=== PATIENT | male | born 1940 | race Caucasian/White ===

== ENCOUNTER 2025-01-05 10:28 | Emergency (ER) | payer MEDICARE, SELFPAY ==
[2025-01-05 10:37] VITALS: BP 111/61; PULSE 64; RESP 20; TEMP 36.7; O2SAT 98
--- NOTE | 2025-01-05 10:49 | ED_ITS ---
HPI - Extremity Injury (Lower) General Chief Complaint: Extremity Injury, Lower Stated Complaint: Left Foot Injury Time Seen by Provider: 01/05/25 11:23 Source: patient and RN notes reviewed Mode of arrival: ambulatory Limitations: no limitations History of Present Illness HPI Narrative: 84-year-old male presents with concern for injury to the 1st digit of the left foot. Reports 5 days ago he hit the toe on a brick threshold and caused an abrasion. Reports he has been taking care of the wound and wanted to make sure it was not getting infected. He denies any warmth, drainage, decreased strength, sensation, range of motion. Denies any fever, aches, chills sweats MD complaint: foot injury Related Data Home Medications Medication Instructions Recorded Confirmed Last Taken Type alfuzosin 10 mg tablet,extended mg PO 01/05/25 Unknown History release 24 hr escitalopram oxalate 20 mg tablet mg 01/05/25 Unknown History gabapentin 300 mg capsule mg 01/05/25 Unknown History hydrochlorothiazide 25 mg tablet mg 01/05/25 Unknown History oxybutynin chloride 15 mg mg PO 01/05/25 Unknown History tablet,extended release 24 hr rosuvastatin 10 mg tablet mg 01/05/25 Unknown History verapamil 240 mg tablet,extended mg PO 01/05/25 Unknown History release zolpidem 10 mg tablet mg 01/05/25 Unknown History Allergies Allergy/AdvReac Type Severity Reaction Status Date / Time No Known Allergies Allergy Unverified 01/05/25 10:44 Review of Systems Review of Systems: CONSTITUTIONAL: Denies malaise, chills, sweats, or fever. SKIN: Denies rash or itching, open skin, laceration, redness, warmth, swelling. Reports scabbed abrasion to the distal 1st digit of left foot MUSCULOSKELETAL: Denies toe pain NEUROLOGIC: Denies numbness, weakness All systems reviewed & are unremarkable except as noted in HPI and below PMFSH Comments At time of signature, agree with nursing past medical, surgical, social and family history. There is no relevant family history pertinent to the presenting complaint Exam Narrative: GENERAL: Well-appearing, well-nourished, and in no acute distress. HEAD: Normocephalic, atraumatic. EYES: PERRLA, conjunctivae clear NECK: Supple. CHEST: Speaks in full sentences. No respiratory distress. HEART: Regular rate and rhythm. Normal and equal peripheral pulses. EXTREMITIES: 1st digit of the left foot has grossly normal strength and sensation, grossly normal range of motion. No edema or ecchymosis. Normal sensation with sensitivity to light touch and pain. No point tenderness. No skin tenting, no devitalized tissue or atrophy, no trophic changes, no obvious deformity, alignment normal, nearby joints and structures intact. Distal pulses palpable and equal bilaterally, skin warm, dry, pink. Capillary refill less than 3 seconds. SKIN: Warm, dry, no rash. Scabbed abrasion noted to the distal 1st digit of the left foot without surrounding erythema, edema, induration, drainage NEURO: Alert and oriented x3. PSYCH: Normal mood and affect Course Course Emergency Course: Patient is aware of diagnosis, understands and agrees to treatment plan. Antic ipatory guidance given. Patient agrees to follow-up as directed and is aware of reasons to seek care at the emergency department. Portions of this record may have been created with voice recognition software Level of Care: Express Care Visit Vital Signs Vital signs: Vital Signs Temperature 98.0 F 01/05/25 10:37 Pulse Rate 64 01/05/25 10:37 Respiratory Rate 20 01/05/25 10:37 Blood Pressure 111/61 01/05/25 10:37 Pulse Oximetry 98 01/05/25 10:37 Oxygen Delivery Room Air 01/05/25 10:37 Temperature 98.0 F 01/05/25 10:37 Pulse Rate 64 01/05/25 10:37 Respiratory Rate 20 01/05/25 10:37 Blood Pressure 111/61 01/05/25 10:37 Pulse Oximetry 98 01/05/25 10:37 Oxygen Delivery Room Air 01/05/25 10:37 Reviewed. MDM - Extremity Injury (Lower) MDM Narrative Medical decision making narrative: The patient was evaluated by myself in the express care. History is obtained from patient who is an independent historian and physical exam was performed. Available medical records were reviewed at this time. Exam findings show no acute concerns or changes; patient is non-toxic appearing and is in no distress. Patient is appropriate for outpatient treatment and follow-up. I have evaluated and discussed social determinants of health with the patient that could potentially impact subsequent diagnosis and treatment plans. Patients injury and pain is consistent with musculoskeletal etiology. No signs of neurological or vascular compromise on exam. Compartments and tissues are soft without signs of compartment syndrome. Pain is felt appropriate for further evaluation on an outpatient basis. Critical Care Time Critical Care Time Critical Care Time: No Discharge Plan Discharge Clinical Impression: Abrasion Patient Disposition: Home Condition: Stable Instructions: Warm Compress or Soak (ED) Additional Instructions: Please follow up with your Primary Care Doctor as needed. Rest and elevate affected area; soak in warm water with Epsom salts or apple cider vinegar 3-4 times daily for 10-15 minutes. Take Tylenol as needed for pain. If you experience any worsening redness, swelling, streaking (red lines), fever or chills please go to the ER Patient Language: Icelandic Prescriptions: No Action oxybutynin chloride 15 mg tablet extended release 24hr PO gabapentin 300 mg capsule verapamil 240 mg tablet extended release PO hydrochlorothiazide 25 mg tablet zolpidem 10 mg tablet escitalopram oxalate 20 mg tablet rosuvastatin 10 mg tablet alfuzosin 10 mg tablet extended release 24 hr PO Follow-up/Referrals: Minh,Fabienne Carter [Primary Care Provider] - Time of Disposition: 11:30
--- OUTSIDE RECORDS SUMMARY | 2025-01-05 11:02 | XMS_ITS | Clinical Summary ---
Author Organization [facility] Medical Office Building A Address [address] [place] [address] Care Team Providers Care Fitness Management Director Name Role Phone Fabienne Wilkinson NP Primary Care Provider [phone] Rupesh Lemus MD Unavailable [phone] Allergies No known active allergies Medications betamethasone dipropionate (DEL-BETA) 0.05 % creamIndications:P soriasis Apply topically 2 (two) times a day as needed for irritation or rash 135 g 1 10/19/19 24 Active betamethasone, augmented, (DIPROLENE AF) 0.05 % cream 10/01/19 24 Active aspirin (Ecotrin) 325 mg enteric coated tabletIndications: prevention of thrombosis Take 1 tablet (325 mg total) by mouth daily 42 tablet 03/19/20 24 Active Additional Information Patient not taking.Reported on 08/18/2024 ondansetron (ZOFRAN) 4 mg tablet Take 1 tablet (4 mg total) by mouth every 8 (eight) hours as needed for nausea or vomiting 20 tablet 2 03/19/20 24 Active Additional Information Patient not taking.Reported on 11/20/2024 clobetasoL (TEMOVATE) 0.05 % external solution 05/08/20 24 Active HYDROcodone-acetam inophen (NORCO) 5-325 mg per tablet 1 tablet(s), Oral, tid, PRN, 90 tablet(s), 0, 0, pain, Route to Pharmacy Electronically, [facility], [facility]-[id number], 95.5, kg, 05/25/23 11:24:00 CDT, Weight 06/05/20 24 Active rosuvastatin (CRESTOR) 10 mg tabletIndications: Mixed hyperlipidemia Take 1 tablet (10 mg total) by mouth nightly 90 tablet 1 08/14/20 24 025 Active gabapentin (NEURONTIN) 300 mg capsuleIndications :Idiopathic peripheral neuropathy Take 1 capsule (300 mg total) by mouth 3 (three) times a day 90 capsule 3 08/18/20 24 Active alfuzosin ER (UROXATRAL) 10 mg 24 hr tabletIndications: benign prostatic hyperplasia with lower urinary tract sx Take 1 tablet (10 mg total) by mouth every morning 90 tablet 1 10/14/19 25 026 Active escitalopram (LEXAPRO) 20 mg tabletIndications: Anxiety and depression TAKE 1 TABLET (20 MG TOTAL) BY MOUTH NIGHTLY 90 tablet 10/21/19 25 026 Active oxyBUTYnin XL (DITROPAN XL) 15 mg 24 hr tabletIndications: Malignant neoplasm of urinary bladder, unspecified site (HCC) Take 1 tablet (15 mg total) by mouth nightly 90 tablet 1 10/29/19 25 026 Active verapamil SR (CALAN SR) 240 mg CR tabletIndications: Essential hypertension Take 1 tablet (240 mg total) by mouth nightly 90 tablet 1 11/08/19 25 026 Active zolpidem (AMBIEN) 10 mg tabletIndications: Primary insomnia TAKE 1 TABLET (10 MG TOTAL) BY MOUTH NIGHTLY 1.22 90 tablet 11/14/19 25 Active hydroCHLOROthiazid e (HYDRODIURIL) 25 mg tabletIndications: Essential hypertension Take 1 tablet (25 mg total) by mouth daily 90 tablet 3 12/03/19 25 Active Active Problems Problem Noted Date Diagnosed Date 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 No red flags likely a bony abnormality that is not worrisome. Fili did just lose about 20 lbs so this may be something that has been there for a while. S/P TKR (total knee replacement), left Assessment & Plan (04/04/2024 3:52 PM CDT): Left TKR 03/18 Recovering well; engaging in PT Incision healing nicely Minimal pain Hypokalemia 03/25/2024 Entropion of right eyelid 08/30/2023 Sensorineural hearing loss ( SNHL) of left ear with restricted hearing of right ear 08/06/2023 Assessment & Plan (08/06/2023 3:13 PM LEAF TINNER): Avoid ear cleaning techniques Hearing test Balance disorder 04/10/2023 Primary osteoarthritis of left knee 04/29/2020 Assessment & Plan (07/01/2024 12:21 PM LEAF TINNER): Post surgical healing well with some pain still noted. Using PRN Hope. Continues to follow with ORTHO PRN Assessment & Plan (10/19/2023 3:20 PM LEAF TINNER): Follows with Dr. Lemus Has been receiving cortisone injections Hope 5-325 mg as needed for pain; takes infrequently BMI 29.0-29.9,adult 05/06/2019 Assessment & Plan (07/04/2024 3:18 PM LEAF TINNER): Weight appropriate for patient. Assessment & Plan (07/01/2024 12:23 PM LEAF TINNER): Weight appropriate for patient. Assessment & Plan (05/06/2019 1:49 PM CDT): Patient is encouraged to lose weight with a combination of caloric reduction and increased exercise. Medicare annual wellness visit, subsequent 10/31 Assessment & Plan (07/01/2024 12:23 PM LEAF TINNER): In regard to health maintenance, Influenza vaccine- UTD Pneumococcal vaccine- UTD Shingrix vaccine- declined Eat a healthy diet: focus on lean meats and proteins, more fruits, vegetables and whole grains and low in sugars and fats. Limit red meat and avoid processed meat. Maintain a healthy weight; avoid being overweight. Aim for a normal body mass index (BMI) of 18.5-24.9. Help learning to eat healthier, we can set up appointment with public relations supervisor/flight deck officer. Have an active lifestyle, strive for 30 minutes of moderate exercise 5 times a week and strength or resistance training at least twice a week. Use broad-spectrum (UVA+UVB) sunscreen with SPF 30 or greater, is water resistant, limit time spent in the sun (10 am-4pm), wear hat, wear UV protective clothing, wear sunglasses. Never use a tanning bed. Skin that was irradiated may be more sensitive over your lifetime. Limit alcohol intake, 1 drink per day for a woman and 2 drinks per day for a man. Assessment & Plan (06/04/2023 11:03 AM CDT): Flu shot and booster recently administered. Pneumovax /Prevnar 13 completed. Tetanus booster due February 2027. RSV recommended. Shingrix recommended. Deferring future PSAs and colonoscopy due to age. Will see him back in 5 months with lab sooner if needed Assessment & Plan (05/12/2022 2:01 PM CDT): Flu shot each May. COVID booster recommended. Pneumovax and Prevnar 13 completed. Tetanus booster due February 2027. Shingrix recommended. Deferring PSAs and colonoscopy due to age. Will see him back in 6 months with lab sooner if needed. Assessment & Plan (05/09/2021 11:38 AM CDT): We discussed a comprehensive list of medical conditions and proposed recommendations for each. We discussed the importance of increased exercise, fall prevention, proper nutrition, and suggested joining [employer] [facility] to accomplish most of these goals. Patient was given an age appropriate Medicare preventive services checklist. Please see the EMR regarding details of their health risk assessment and preventive services checklist. Will see him back in 6 months with lab sooner if needed. Assessment & Plan (04/01/2020 5:25 PM CDT): We discussed a comprehensive list of medical conditions and proposed recommendations for each. We discussed the importance of increased exercise, fall prevention, proper nutrition, and suggested joining [facility] to accomplish most of these goals. Patient was given an age appropriate Medicare preventive services checklist. Please see the EMR regarding details of their health risk assessment and preventive services checklist. Will see him back in 6 months with lab sooner if needed. Assessment & Plan (10/31/2018 2:26 PM CDT): We discussed a comprehensive list of medical conditions and proposed recommendations for each. We discussed the importance of increased exercise, fall prevention, proper nutrition, and suggested joining [facility] to accomplish most of these goals. Patient was given an age appropriate Medicare preventive services checklist. Please see the EMR regarding details of their health risk assessment and preventive services checklist. Will see him back in 6 months with metabolic panel and A1c sooner if needed. Essential hypertension 12/31/2017 Assessment & Plan (07/01/2024 12:18 PM LEAF TINNER): Blood pressure stable and well controlled. Will continue on Verapamil, HCTZ, and ASA. Assessment & Plan (10/19/2023 3:24 PM LEAF TINNER): Chronic, stable BP at goal at visit; 114/72 Continue Verapamil 240 mg nightly, HCTZ 25 mg nightly and ASA 81 mg weekly on Sunday Assessment & Plan (06/04/2023 11:02 AM CDT): Blood pressure well controlled on hydrochlorothiazide, verapamil Assessment & Plan (05/12/2022 1:59 PM CDT): Well controlled on the current regimen. Avoidance of salt, proper body weight, and routine exercise recommended. Assessment & Plan (11/07/2021 1:43 PM CDT): Well controlled on the current regimen. Avoidance of salt, proper body weight, and routine exercise recommended. Assessment & Plan (05/09/2021 11:36 AM CDT): Well controlled on the current regimen. Avoidance of salt, proper body weight, and routine exercise recommended. Assessment & Plan (01/10/2021 2:48 PM CDT): Well controlled on the current regimen. Avoidance of salt, proper body weight, and routine exercise recommended. Assessment & Plan (10/27/2020 11:50 AM LEAF TINNER): Well controlled on the current regimen. Avoidance of salt, proper body weight, and routine exercise recommended. Assessment & Plan (04/01/2020 5:25 PM CDT): Well controlled on the current regimen. Avoidance of salt, proper body weight, and routine exercise recommended. Assessment & Plan (05/06/2019 1:48 PM CDT): Well controlled on the current regimen. Avoidance of salt, proper body weight, and routine exercise recommended. Assessment & Plan (10/31/2018 2:24 PM CDT): Well controlled on the current regimen. Avoidance of salt, proper body weight, and routine exercise recommended. Assessment & Plan (04/30/2018 2:35 PM CDT): Well controlled on the current regimen. Avoidance of salt, proper body weight, and routine exercise recommended. Will see him back in 6 months for wellness visit fasting lab sooner if needed. Assessment & Plan (12/31/2017 12:05 PM CDT): Well controlled but if creatinine continues to rise consider changing hydrochlorothiazide to alternative agent. Bladder cancer 12/31/2017 Overview (05/09/2021): Dr Contreras removed tumors x 2. Followed by Dr Malik. Assessment & Plan (10/19/2023 3:25 PM LEAF TINNER): History of bladder cancer Follows with urology Continue Oxyburynin 15 mg nightly and Uroxatral 10 mg nighlty Assessment & Plan (06/04/2023 11:02 AM CDT): Follow-up with his urologist as they direct Assessment & Plan (05/12/2022 2:00 PM CDT): Follow-up with his urologist as they direct. Assessment & Plan (05/09/2021 11:37 AM CDT): Patient instructed to follow-up with his urologist for further evaluation with possible cystoscopy to evaluate his lower urinary tract symptoms. Assessment & Plan (04/01/2020 5:26 PM CDT): Follow-up with his urologist as they direct. Assessment & Plan (05/06/2019 1:48 PM CDT): Follow-up his urologist as they direct. Assessment & Plan (10/31/2018 2:24 PM CDT): Follow-up with Dr. Contreras as he directs. Assessment & Plan (04/30/2018 2:34 PM CDT): Follow-up with Dr. Contreras as he directs. Assessment & Plan (12/31/2017 12:06 PM CDT): Follow-up with Dr. Contreras as he directs. IFG (impaired fasting glucose) 12/31/2017 Assessment & Plan (07/01/2024 12:18 PM LEAF TINNER): A1C ordered. Stable and will continue to monitor. Assessment & Plan (05/12/2022 1:59 PM CDT): Patient should reduce sugar and carbs, increase exercise, maintain proper body weight, and will check an A1c once or twice yearly. Assessment & Plan (11/07/2021 1:43 PM CDT): Patient should reduce sugar and carbs, increase exercise, maintain proper body weight, and will check an A1c once or twice yearly. Assessment & Plan (05/09/2021 11:37 AM CDT): Patient should reduce sugar and carbs, increase exercise, maintain proper body weight, and will check an A1c once or twice yearly. Assessment & Plan (10/27/2020 11:50 AM LEAF TINNER): Patient should reduce sugar and carbs, increase exercise, maintain proper body weight, and will check an A1c once or twice yearly. Assessment & Plan (04/01/2020 5:25 PM CDT): Patient should reduce sugar and carbs, increase exercise, maintain proper body weight, and will check an A1c once or twice yearly. Assessment & Plan (05/06/2019 1:48 PM CDT): Patient should reduce sugar and carbs, increase exercise, maintain proper body weight, and will check an A1c once or twice yearly. Assessment & Plan (10/31/2018 2:24 PM CDT): Check fasting blood sugar and A1c before next visit. Reduce carbohydrates and sugars. Assessment & Plan (04/30/2018 2:34 PM CDT): Patient should reduce sugar and carbs, increase exercise, maintain proper body weight, and will check an A1c once or twice yearly. Assessment & Plan (12/31/2017 12:06 PM CDT): Patient should reduce sugar and carbs, increase exercise, maintain proper body weight, and will check an A1c once or twice yearly. Mixed hyperlipidemia 12/31/2017 Assessment & Plan (07/01/2024 12:19 PM LEAF TINNER): Lipid panel stable and will continue to monitor. Continue on Rosuvastatin. Assessment & Plan (10/19/2023 3:21 PM LEAF TINNER): Chronic, stable Continue rosuvastatin 10 mg nightly Labs ordered; will make medication adjustments as needed Assessment & Plan (06/04/2023 11:04 AM CDT): Well controlled on current therapy and will check a lipid panel and LFTs in 12 months. Assessment & Plan (05/12/2022 1:59 PM CDT): Well controlled on current therapy and will check a lipid panel and LFTs in 6 months. Assessment & Plan (11/07/2021 1:43 PM CDT): Well controlled on current therapy and will check a lipid panel and LFTs in 6 months. Assessment & Plan (05/09/2021 11:37 AM CDT): Well controlled on current therapy and will check a lipid panel and LFTs in 6 months. Assessment & Plan (10/27/2020 11:50 AM LEAF TINNER): Well controlled on current therapy and will check a lipid panel and LFTs in 6 months. Assessment & Plan (04/01/2020 5:24 PM CDT): Well controlled on current therapy and will check a lipid panel and LFTs in 6 months. Assessment & Plan (05/06/2019 1:48 PM CDT): Well controlled on current therapy and will check a lipid panel and LFTs in 6 months. Assessment & Plan (10/31/2018 2:24 PM CDT): Well controlled on current therapy and will check a lipid panel and LFTs in 12 months. Assessment & Plan (04/30/2018 2:34 PM CDT): Well controlled on current therapy and will check a lipid panel and LFTs in 6 months. Call back if in fact he is not taking his Crestor. This certainly would be hard to explain considering his dramatic improvement of cholesterol levels. Assessment & Plan (12/31/2017 12:06 PM CDT): With increased risk of ASCVD, will try rosuvastatin 10 mg at bedtime and check lipids and LFTs before next visit. Risks of medications discussed will call back if any side effects develop. Insomnia 12/31/2017 Assessment & Plan (07/01/2024 12:20 PM LEAF TINNER): Chronic and well controlled. Will continue on Ambien. Assessment & Plan (10/19/2023 3:22 PM LEAF TINNER): Chronic, currently well controlled Continue Ambien 10 mg nightly Assessment & Plan (06/04/2023 11:03 AM CDT): Stable on Ambien Assessment & Plan (05/12/2022 1:59 PM CDT): Continue Ambien as needed Assessment & Plan (11/07/2021 1:44 PM CDT): He has had no issues on his Ambien and will continue for now. Consider decreasing dose in the future if develops side effects. Assessment & Plan (05/09/2021 11:37 AM CDT): Continue Ambien Assessment & Plan (12/31/2017 12:06 PM CDT): Continue Ambien CR. Has tolerated well for about a year without side effects Idiopathic peripheral neuropathy 12/31/2017 Overview (05/09/2021): Dr Tim at [facility]. Failed lyrica/gabapentin (ineffective), immunotherapy at [facility] ineffective. cymbalta/norco per neurology. Assessment & Plan (07/01/2024 12:18 PM LEAF TINNER): Chronic and worsening. Will continue on Hope PRN and referral placed to Neuro in [place]. Assessment & Plan (10/19/2023 3:23 PM LEAF TINNER): Chronic, generally controlled Continue Hope 5-325 mg as needed Assessment & Plan (06/04/2023 11:03 AM CDT): Follow-up with his neurologist as they direct Assessment & Plan (05/12/2022 1:59 PM CDT): Follow-up with his neurologist as they direct Assessment & Plan (05/09/2021 11:37 AM CDT): Follow-up with his neurologist as they direct. Assessment & Plan (01/10/2021 2:49 PM CDT): Continue his Cymbalta and Hope per his neurologist. He is instructed to complete his [employer] medical marijuana program application and drop off the physician portion for my completion. He is also aware that audible forms of be safer than inhalation of medical marijuana products. He is also aware of the mind-altering qualities of the product and to be careful with sedation and falls. Assessment & Plan (04/01/2020 5:25 PM CDT): Follow-up with his neurologist as they direct. Assessment & Plan (05/06/2019 1:48 PM CDT): Continue current medication regimen follow up with neurologist as they direct. Assessment & Plan (10/31/2018 2:25 PM CDT): Follow-up with his neurologist as they direct. Could try medical marijuana to see if he has any benefit. Assessment & Plan (04/30/2018 2:34 PM CDT): Follow-up with neurologist as they direct. Assessment & Plan (12/31/2017 12:07 PM CDT): Continue current medication regimen as directed by his neurologist. Low vitamin B12 level 12/31/2017 Assessment & Plan (10/19/2023 3:21 PM LEAF TINNER): Continue Vitamin B12 Labs ordered Assessment & Plan (06/04/2023 11:03 AM CDT): Restart B12 supplementation check level before next visit Assessment & Plan (05/12/2022 1:59 PM CDT): Continue B12 supplementation check level in 1 year Assessment & Plan (11/07/2021 1:44 PM CDT): Continue supplementation and check level before next visit. Assessment & Plan (05/09/2021 11:37 AM CDT): Restart B12 supplement check level before next visit. Assessment & Plan (04/01/2020 5:25 PM CDT): Continue supplementation check level in 1 year. Assessment & Plan (05/06/2019 1:48 PM CDT): Hold B12 and check level before next visit. Assessment & Plan (10/31/2018 2:26 PM CDT): Continue supplementation check level in 1 year. Assessment & Plan (04/30/2018 2:34 PM CDT): Continue supplementation check level before next visit. Assessment & Plan (12/31/2017 12:07 PM CDT): Continue oral supplementation check level before next visit. Keratosis, senilis 10/25/2015 Skin neoplasm 08/17/2014 Obstructive sleep apnea syndrome 12/25/2013 Assessment & Plan (07/01/2024 12:19 PM LEAF TINNER): Still not using CPAP. Assessment & Plan (10/19/2023 2:37 PM LEAF TINNER): Patient has not used his CPAP in 30 years Assessment & Plan (06/04/2023 11:04 AM CDT): Patient is compliant with the CPAP machine and gets symptomatic relief. Assessment & Plan (05/12/2022 1:58 PM CDT): Patient is compliant with the CPAP machine and gets symptomatic relief. Assessment & Plan (05/09/2021 11:36 AM CDT): Patient is compliant with the CPAP machine and gets symptomatic relief. Assessment & Plan (10/27/2020 11:50 AM LEAF TINNER): Patient is compliant with the CPAP machine and gets symptomatic relief. Assessment & Plan (05/06/2019 1:48 PM CDT): Patient is compliant with the CPAP machine and gets symptomatic relief. Assessment & Plan (10/31/2018 2:23 PM CDT): Patient is compliant with the CPAP machine and gets symptomatic relief. Assessment & Plan (04/30/2018 2:33 PM CDT): Patient is compliant with the CPAP machine and gets symptomatic relief. Assessment & Plan (12/31/2017 12:06 PM CDT): Patient is compliant with the CPAP machine and gets symptomatic relief. Infectious warts 03/11/2013 Inflamed seborrheic keratosis 08/03/2011 Psoriasis 03/13/2011 Assessment & Plan (07/01/2024 12:20 PM LEAF TINNER): Chronic and stable. 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 Warned water was then used to gently lavage his right external auditory canal. He had some cerumen removed but still had a large cerumen impaction afterwards and could not visualize the tympanic membrane. After several attempts we decided it best for ENT referral for further evaluation and treatment. Blood in stool 01/28/2019 10/19/2023 Assessment & Plan (01/28/2019 2:50 PM CDT): Several weeks ago noted BRBPR only with bm for 10 days. No anal pain and no palpable swelling. Bleeding ceased 2 weeks ago without recurrence. No other change in bowel habits. Reviewed findings on recent colonoscopy and discussed repeat but advised against unless BRBPR recurs, Return prn At low risk for fall 10/31/201805/12/ 022 Assessment & Plan (05/09/2021 11:38 AM CDT): Walk in well lit rooms without clutter on the floor and use handrails on all stair cases. Assessment & Plan (04/01/2020 5:26 PM CDT): Timed get up and go test normal. Assessment & Plan (10/31/2018 2:26 PM CDT): Timed get up and go test normal. 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 Adiposity 12/25/2013 12/31/2017 Overview (11/23/2016): Obesity Hypersomnia 12/25/2013 12/31/2017 Overview (11/23/2016): Hypersomnia Encounters Date Type Department Care Team Description 12/18/2024 Results Follow-Up [facility] [address] [place] [phone] Valeria Albarran PA US VEIN DUPLEX LOWER EXTREMITY LEFT LIMITED, UNILATERAL 12/17/2024 9:57 AM CDT - 12/17/2024 11:59 PM CDT Hospital Encounter [facility] [address] [place] [address] Swelling of lower leg; Status post total left knee replacement Discharge Disposition: Discharge to home or self care 12/16/2024 Telephone [facility] [address] [place] [address] [address], [place] [address] Lanie Perez MA 12/09/2024 Telephone [facility] [address] [phone] Fabienne Wilkinson NP Reschedule Appointment 11/20/2024 11:30 AM CDT Office Visit [facility] [address] [place] [address] [address], [place] [phone] Rupesh Lemus MD Chondromalacia of left patella (Primary Dx); Crepitus of joint of left knee 10/31/2024 2:00 PM CDT Office Visit [facility] [address] [place] [address] [address] [place] [phone] Mahogany Pavon NP Aftercare following left knee joint replacement surgery (Primary Dx) 10/31/2024 7:45 AM CDT - 10/31/2024 11:59 PM CDT Hospital Encounter [facility] [address] [place] [address] [address] [place] [phone] Discharge Disposition: Discharge to home or self care from Last 3 Months Immunizations Immunization Administration Dates Next Due COVID-19 MRNA (MODERNA) .25 ML (25 MCG) VACCINE (6 MOS- 11 YRS) 05/28/2023 Influenza, Quad, Adjuvantate d, Intramuscular 07/20/2022 Influenza, Quadrivalent, Hig h Dose, Preservative Free, Intrr 05/28/2023 Influenza, Quadrivalent, Spl it, Intramuscular 07/07/2020 Influenza, Quadrivalent, Spl it, Preservative Free, Intramuscular 06/21/2016 Influenza, Split 06/03/2010 Influenza, Trivalent, High D ose, Split, Preservative Free, Intramuscular 07/12/2021,06/14/2016 Influenza, Trivalent, IM (MDV) 06/03/2014,2012,07/23/2012 Influenza, Unspecified 05/20/2024,2020(Deferred: Patient Refused),04/01/2020(Deferred: Patient Refused),05/28/2019,05/06/2019(Deferre d: Patient Refused),06/03/2018,07/04/2017 Pfizer SARS-CoV-2 Monovalent Vaccination (12+ Yrs) PURPLE 11/10/2020,10/20/2020 Pneumococcal Conjugate PCV 13 12/31/2017 Pneumococcal Polysaccharide PPV23 04/01/2020 Td, Unspecified 03/02/2017 ZOSTER LIVE 11/07/2012 ZOSTER Recombinant 04/26/2023 Surgical History Surgery Date Site/Laterality Comments TRANSURETHRAL RESECTION OF BLADDER TUMOR 2009 and once again 2015 ENTROPION REPAIR 09/11/2022 Right TOTAL KNEE ARTHROPLASTY 03/18/2024 Left Medical History Medical History Date Comments Malignant neoplasm of urinary bladder (HCC) Cancer, bladder Hypertension Hypertension Hx Other Medical low grade tcc Diabetes mellitus (HCC) Diabetes Idiopathic peripheral neuropathy 2013 Sleep apnea Blood in stool 01/28/2019 GERD (gastroesophageal reflux disease) Constipation Family History Medical History Relation Name Comments Coronary artery disease Father Eda nary Artery Disease; /Coronary artery disease; Hypertension Father Hypertension; Stroke Father Stroke; /Stroke ; Other Mother Unknown; Cancer Other Family history of Cancer; Anesthesia problems Neg Hx Relation Name Status Comments Father Mother Other Social History Tobacco Use Types Packs/Day Years Used Date Smoking Tobacco: Former Cigarettes 2 42 1 953 - 1994 Smokeless Tobacco: Never Tobacco Cessation:Counseling Given: Not Answered Alcohol Use Standard Drinks/Week Comments Yes 0 (1 standard drink = 0.6 oz pur e alcohol) OASIS D0700: Social Isolation Answer Da te Recorded Frequency of experiencing loneliness or isolatio n Never 04/09/2024 OASIS A1250: Transportation Answer Date Recorded Lack of Transportation (Medical) No 04/09/2024 Lack of Transportation (Non-Medical) No 04/09/2024 Patient Unable or Declines to Respond No 04/09/2024 OASIS B1300: Health Literacy Answer Everardo e Recorded Frequency of needing help to read materials from doctor or pharmacy Sometimes 04/09/2024 [facility] Utilities Answer Date Recorded In the past 12 months has e [employer], [employer], oil, or water [employer] threatened to shut off services in your home? No 04/24/2024 AUDIT-C Answer Date Recorded Q1: How often do you have a drink containing alcohol? Never 10/31/2024 Q2: How many drinks containi ng alcohol do you have on a typical day when you are drinking? Patient does not drink Q3: How often do you have si x or more drinks on one occasion? Never 10/31/2024 Overall Financial Resource Strain (CARDIA) Answe r Date Recorded How hard is it for you to pa y for the very basics like food, housing, medical care, and heating? Not very hard 04/24/2024 PHQ-2 Answer Date Recorded PHQ-2 Total Score (If total score is 3 or more points, staff should administer the PHQ-9) 0 07/04/2024 Hunger Vital Sign Answer Date Recorded Within the past 12 months, y ou worried that your food would run out before you got the money to buy more. Never true 04/24/20 24 Within the past 12 months, t he food you bought just didn't last and you didn't have money to get more. Never true 04/24/2024 Housing Stability Vital Sign Answer Everardo e Recorded In the last 12 months, was t here a time when you were not able to pay the mortgage or rent on time? No 04/24/2024 In the past 12 months, how m any times have you moved where you were living? 0 04/24/2024 At any time in the past 12 m [facility], were you homeless or living in a snf (including now)? No 04/24/2024 Personal Safety Answer Date Recorded Have you ever been in or are you currently in a harmful physical or emotional relationship or is someone making you feel afraid or unsafe? Denies 03/18/2024 Sex and Gender Information Value Date Recorded Sex Assigned at Not on file Legal Sex Male 12:50 AM LEAF TINNER Gender Identity Not on file Sexual Orientation Not on file Obstetrics History Last Filed Vital Signs Vital Sign Reading Time Taken Comments Blood Pressure 111/68 11/20/2024 11:24 AM CDT Pulse 69 11/20/2024 11:24 AM CDT Temperature 36.4 C (97.6 F) 07/04/2024 2:56 PM LEAF TINNER Respiratory Rate 18 10/31/2024 2:05 PM CDT Oxygen Saturation 97% 08/18/2024 7:52 AM LEAF TINNER Inhaled Oxygen Concentration - - Weight 78 kg (172 lb) 11/20/2024 11:24 AM CDT Height 162.6 cm (5' 4 ) 11/20/2024 11:24 AM CDT Body Mass Index 29.52 11/20/2024 11:24 AM CDT Plan of Treatment Health Maintenance Due Date Last Done Comments Abdominal Aortic Aneurysm (A AA) Screen 2003 DTaP/Tdap/Td Vaccine (1 - Tdap) 03/03/2017 7 Zoster Vaccine (3 of 3) 06/21/2023 04/26/2023, 11/07 Covid-19 Vaccine (5 - 2023-2 5 season) 2024 05/28/2023, 12/07/2021, 05/21/2021, Additional history exists Prostate Cancer Screening-PSA 06/26/2025 06/26/2024, 06/01/2023 Fall Risk Assessment 07/01/2025 07/01/2024, 03/25/2024, 03/10/2024, Additional history exists Well Visit 65+ 07/01/2025 07/01/2024, 05/20, 05/12/2022, Additional history exists Depression Screening 07/04/2025 07/04/2024, 07/01/2024, 04/04/2024, Additional history exists Colon Cancer Screening-Colonoscopy 07/20/2026 07/20/2016, 07/20/2016 Colon Cancer Screening-CT Colonography Discontinued 07/20/2016, 07/20/2016 Colon Cancer Screening-DNA Stool Discontinued 07/20/20 16, 07/20/2016 Colon Cancer Screening-FIT Discontinued 07/20/2016, Colon Cancer Screening-Sigmoidoscopy Discontinued 07/20/2016, 07/20/2016 Pneumococcal vaccine 65+ Completed 04/01/2020, 12/18 Influenza Vaccine Completed 05/20/2024, , 07/20/2022, Additional history exists Hepatitis B Screening Completed 06/26/2024 Medical Devices Implanted Type Area Career And Guidance Counselor Device Identifier Shelf Expiration Date Model / Serial / Lot [employer] Attune 5mm Posterior Stabilize Fix Bearing Knee 6 Insert Tibial [id number] - [id number] Implanted:Qty: 1 on 03/18/2024 by Rupesh Lemus MD at [facility] Left: Knee [employer] [id number] 06/19/2028 [id number] / / [id number] [employer] Attune Fb Tib Base Sz 7 Por [id number] - [id number] Implanted:Qty: 1 on 03/18/2024 by Rupesh Lemus MD at [facility] Left: Knee [employer] [id number] 03/19/2032 [id number] / / [id number] [employer] Component Femoral Knee Porous Posterior Stabilized Left Attune Size 6 [employer] [id number] - [id number] Implanted:Qty: 1 on 03/18/2024 by Rupesh eLmus MD at [facility] Left: Knee [employer] [id number] 12/17/2032 [id number] / / [id number] Procedures Procedure Name Priority Date/Time Associated Diagnosis Comments US VEIN DUPLEX LOWER EXTREMITY LEFT LIMITED Schedule Routine, Read Routine (OP Routine) 12/17/2024 10:24 AM CDT Swelling of lower leg Status post total left knee replacement XR KNEE LEFT 3 VIEWS Schedule Routine, Read Routine (OP Routine) 10/31/2024 1:58 PM CDT Aftercare following left knee joint replacement surgery PSA SCREEN Routine 06/26/2024 10:13 AM LEAF TINNER Screening PSA (prostate specific antigen) COLONOSCOPY IMAGES 07/20/2016 from Last 3 Months or Most Recently Relevant to Health Maintenance Results * US VEIN DUPLEX LOWER EXTREMITY LEFT LIMITED, UNILATERAL (12/17/2024 10:24 AM CDT) Anatomical Region Laterality Modality Vascular Left Ultrasound 12/17/2024 11:2 8 AM CDT Narrative 12/17/2024 11:29 AM CDT EXAM DESCRIPTION: US VEIN DUPLEX LOWER EXTREMITY LEFT LIMITED, UNILATERAL REASON FOR STUDY: Lower leg swelling status post left knee replacement. TECHNIQUE: [id number]|2025-01-05 11:02:00|2025-01-05 11:02:00|XMS_ITS|BKG DAEMON|External Medical Summaries|[id number]|" Referral Summary Created on: January 05, 2025 Maulik Ferguson : 1940 Sex: Male Author [facility] Medical Office Building A Address [address] [place] [address] Care Team Providers Care Fitness Management Director Name Role Phone Fabienne Wilkinson NP Primary Care Provider [phone] Rupesh Lemus MD Unavailable [phone] Encounters Date Type Department Care Team Description 12/18/2024 Results Follow-Up [facility] Orthopedics and Sports Medicine [address] [place] [address] [address], [place] [phone] Valeria Albarran PA US VEIN DUPLEX LOWER EXTREMITY LEFT LIMITED, UNILATERAL 12/17/2024 9:57 AM CDT - 12/17/2024 11:59 PM CDT Hospital Encounter [facility] [address] [place] [address] Swelling of lower leg; Status post total left knee replacement Discharge Disposition: Discharge to home or self care 12/16/2024 Telephone [facility] Orthopedics and Sports Medicine [address] [place] [phone] Lanie Perez MA 12/09/2024 Telephone [facility] [address] [phone] Fabienne Wilkinson NP Reschedule Appointment 11/20/2024 11:30 AM CDT Office Visit [facility] Orth[facility]ics and Sports Medicine [address] [place] [phone] Rupesh Lemus MD Chondromalacia of left patella (Primary Dx); Crepitus of joint of left knee 10/31/2024 7:45 AM CDT - 10/31/2024 11:59 PM CDT Hospital Encounter [facility] [address] [place] [address] [address], [place] [phone] Discharge Disposition: Discharge to home or self care 10/31/2024 2:00 PM CDT Office Visit [facility] Sports Medicine [address] [place] [address] [address], [place] [phone] Mahogany Pavon NP Aftercare following left knee joint replacement surgery (Primary Dx) from Last 3 Months Allergies No known active allergies Medications betamethasone dipropionate (DEL-BETA) 0.05 % creamIndications:P soriasis Apply topically 2 (two) times a day as needed for irritation or rash 135 g 1 10/19/19 24 Active betamethasone, augmented, (DIPROLENE AF) 0.05 % cream 10/01/19 24 Active aspirin (Ecotrin) 325 mg enteric coated tabletIndications: prevention of thrombosis Take 1 tablet (325 mg total) by mouth daily 42 tablet 03/19/20 24 Active Additional Information Patient not taking.Reported on 08/18/2024 ondansetron (ZOFRAN) 4 mg tablet Take 1 tablet (4 mg total) by mouth every 8 (eight) hours as needed for nausea or vomiting 20 tablet 2 03/19/20 24 Active Additional Information Patient not taking.Reported on 11/20/2024 clobetasoL (TEMOVATE) 0.05 % external solution 05/08/20 24 Active HYDROcodone-acetam inophen (NORCO) 5-325 mg per tablet 1 tablet(s), Oral, tid, PRN, 90 tablet(s), 0, 0, pain, Route to Pharmacy Electronically, [facility] [place], [id number], 95.5, kg, 05/25/23 11:24:00 CDT, Weight 06/05/20 24 Active rosuvastatin (CRESTOR) 10 mg tabletIndications: Mixed hyperlipidemia Take 1 tablet (10 mg total) by mouth nightly 90 tablet 1 08/14/20 24 025 Active gabapentin (NEURONTIN) 300 mg capsuleIndications :Idiopathic peripheral neuropathy Take 1 capsule (300 mg total) by mouth 3 (three) times a day 90 capsule 3 08/18/20 24 Active alfuzosin ER (UROXATRAL) 10 mg 24 hr tabletIndications: benign prostatic hyperplasia with lower urinary tract sx Take 1 tablet (10 mg total) by mouth every morning 90 tablet 1 10/14/19 25 026 Active escitalopram (LEXAPRO) 20 mg tabletIndications: Anxiety and depression TAKE 1 TABLET (20 MG TOTAL) BY MOUTH NIGHTLY 90 tablet 10/21/19 25 026 Active oxyBUTYnin XL (DITROPAN XL) 15 mg 24 hr tabletIndications: Malignant neoplasm of urinary bladder, unspecified site (HCC) Take 1 tablet (15 mg total) by mouth nightly 90 tablet 1 10/29/19 25 026 Active verapamil SR (CALAN SR) 240 mg CR tabletIndications: Essential hypertension Take 1 tablet (240 mg total) by mouth nightly 90 tablet 1 11/08/19 25 026 Active zolpidem (AMBIEN) 10 mg tabletIndications: Primary insomnia TAKE 1 TABLET (10 MG TOTAL) BY MOUTH NIGHTLY 1.22 90 tablet 11/14/19 25 Active hydroCHLOROthiazid e (HYDRODIURIL) 25 mg tabletIndications: Essential hypertension Take 1 tablet (25 mg total) by mouth daily 90 tablet 3 12/03/19 25 Active Active Problems Problem Noted Date Diagnosed Date 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 No red flags likely a bony abnormality that is not worrisome. Fili did just lose about 20 lbs so this may be something that has been there for a while. S/P TKR (total knee replacement), left Assessment & Plan (04/04/2024 3:52 PM CDT): Left TKR 03/18 Recovering well; engaging in PT Incision healing nicely Minimal pain Hypokalemia 03/25/2024 Entropion of right eyelid 08/30/2023 Sensorineural hearing loss ( SNHL) of left ear with restricted hearing of right ear 08/06/2023 Assessment & Plan (08/06/2023 3:13 PM LEAF TINNER): Avoid ear cleaning techniques Hearing test Balance disorder 04/10/2023 Primary osteoarthritis of left knee 04/29/2020 Assessment & Plan (07/01/2024 12:21 PM LEAF TINNER): Post surgical healing well with some pain still noted. Using PRN Hope. Continues to follow with ORTHO PRN Assessment & Plan (10/19/2023 3:20 PM LEAF TINNER): Follows with Dr. Lemus Has been receiving cortisone injections Hope 5-325 mg as needed for pain; takes infrequently BMI 29.0-29.9,adult 05/06/2019 Assessment & Plan (07/04/2024 3:18 PM LEAF TINNER): Weight appropriate for patient. Assessment & Plan (07/01/2024 12:23 PM LEAF TINNER): Weight appropriate for patient. Assessment & Plan (05/06/2019 1:49 PM CDT): Patient is encouraged to lose weight with a combination of caloric reduction and increased exercise. Medicare annual wellness visit, subsequent 10/31 Assessment & Plan (07/01/2024 12:23 PM LEAF TINNER): In regard to health maintenance, Influenza vaccine- UTD Pneumococcal vaccine- UTD Shingrix vaccine- declined Eat a healthy diet: focus on lean meats and proteins, more fruits, vegetables and whole grains and low in sugars and fats. Limit red meat and avoid processed meat. Maintain a healthy weight; avoid being overweight. Aim for a normal body mass index (BMI) of 18.5-24.9. Help learning to eat healthier, we can set up appointment with public relations supervisor/flight deck officer. Have an active lifestyle, strive for 30 minutes of moderate exercise 5 times a week and strength or resistance training at least twice a week. Use broad-spectrum (UVA+UVB) sunscreen with SPF 30 or greater, is water resistant, limit time spent in the sun (10 am-4pm), wear hat, wear UV protective clothing, wear sunglasses. Never use a tanning bed. Skin that was irradiated may be more sensitive over your lifetime. Limit alcohol intake, 1 drink per day for a woman and 2 drinks per day for a man. Assessment & Plan (06/04/2023 11:03 AM CDT): Flu shot and booster recently administered. Pneumovax /Prevnar 13 completed. Tetanus booster due February 2027. RSV recommended. Shingrix recommended. Deferring future PSAs and colonoscopy due to age. Will see him back in 5 months with lab sooner if needed Assessment & Plan (05/12/2022 2:01 PM CDT): Flu shot each May. COVID booster recommended. Pneumovax and Prevnar 13 completed. Tetanus booster due February 2027. Shingrix recommended. Deferring PSAs and colonoscopy due to age. Will see him back in 6 months with lab sooner if needed. Assessment & Plan (05/09/2021 11:38 AM CDT): We discussed a comprehensive list of medical conditions and proposed recommendations for each. We discussed the importance of increased exercise, fall prevention, proper nutrition, and suggested joining [employer] [facility] to accomplish most of these goals. Patient was given an age appropriate Medicare preventive services checklist. Please see the EMR regarding details of their health risk assessment and preventive services checklist. Will see him back in 6 months with lab sooner if needed. Assessment & Plan (04/01/2020 5:25 PM CDT): We discussed a comprehensive list of medical conditions and proposed recommendations for each. We discussed the importance of increased exercise, fall prevention, proper nutrition, and suggested joining [facility] to accomplish most of these goals. Patient was given an age appropriate Medicare preventive services checklist. Please see the EMR regarding details of their health risk assessment and preventive services checklist. Will see him back in 6 months with lab sooner if needed. Assessment & Plan (10/31/2018 2:26 PM CDT): We discussed a comprehensive list of medical conditions and proposed recommendations for each. We discussed the importance of increased exercise, fall prevention, proper nutrition, and suggested joining [facility] to accomplish most of these goals. Patient was given an age appropriate Medicare preventive services checklist. Please see the EMR regarding details of their health risk assessment and preventive services checklist. Will see him back in 6 months with metabolic panel and A1c sooner if needed. Essential hypertension 12/31/2017 Assessment & Plan (07/01/2024 12:18 PM LEAF TINNER): Blood pressure stable and well controlled. Will continue on Verapamil, HCTZ, and ASA. Assessment & Plan (10/19/2023 3:24 PM LEAF TINNER): Chronic, stable BP at goal at visit; 114/72 Continue Verapamil 240 mg nightly, HCTZ 25 mg nightly and ASA 81 mg weekly on Sunday Assessment & Plan (06/04/2023 11:02 AM CDT): Blood pressure well controlled on hydrochlorothiazide, verapamil Assessment & Plan (05/12/2022 1:59 PM CDT): Well controlled on the current regimen. Avoidance of salt, proper body weight, and routine exercise recommended. Assessment & Plan (11/07/2021 1:43 PM CDT): Well controlled on the current regimen. Avoidance of salt, proper body weight, and routine exercise recommended. Assessment & Plan (05/09/2021 11:36 AM CDT): Well controlled on the current regimen. Avoidance of salt, proper body weight, and routine exercise recommended. Assessment & Plan (01/10/2021 2:48 PM CDT): Well controlled on the current regimen. Avoidance of salt, proper body weight, and routine exercise recommended. Assessment & Plan (10/27/2020 11:50 AM LEAF TINNER): Well controlled on the current regimen. Avoidance of salt, proper body weight, and routine exercise recommended. Assessment & Plan (04/01/2020 5:25 PM CDT): Well controlled on the current regimen. Avoidance of salt, proper body weight, and routine exercise recommended. Assessment & Plan (05/06/2019 1:48 PM CDT): Well controlled on the current regimen. Avoidance of salt, proper body weight, and routine exercise recommended. Assessment & Plan (10/31/2018 2:24 PM CDT): Well controlled on the current regimen. Avoidance of salt, proper body weight, and routine exercise recommended. Assessment & Plan (04/30/2018 2:35 PM CDT): Well controlled on the current regimen. Avoidance of salt, proper body weight, and routine exercise recommended. Will see him back in 6 months for wellness visit fasting lab sooner if needed. Assessment & Plan (12/31/2017 12:05 PM CDT): Well controlled but if creatinine continues to rise consider changing hydrochlorothiazide to alternative agent. Bladder cancer 12/31/2017 Overview (05/09/2021): Dr Contreras removed tumors x 2. Followed by Dr Malik. Assessment & Plan (10/19/2023 3:25 PM LEAF TINNER): History of bladder cancer Follows with urology Continue Oxyburynin 15 mg nightly and Uroxatral 10 mg nighlty Assessment & Plan (06/04/2023 11:02 AM CDT): Follow-up with his urologist as they direct Assessment & Plan (05/12/2022 2:00 PM CDT): Follow-up with his urologist as they direct. Assessment & Plan (05/09/2021 11:37 AM CDT): Patient instructed to follow-up with his urologist for further evaluation with possible cystoscopy to evaluate his lower urinary tract symptoms. Assessment & Plan (04/01/2020 5:26 PM CDT): Follow-up with his urologist as they direct. Assessment & Plan (05/06/2019 1:48 PM CDT): Follow-up his urologist as they direct. Assessment & Plan (10/31/2018 2:24 PM CDT): Follow-up with Dr. Contreras as he directs. Assessment & Plan (04/30/2018 2:34 PM CDT): Follow-up with Dr. Contreras as he directs. Assessment & Plan (12/31/2017 12:06 PM CDT): Follow-up with Dr. Contreras as he directs. IFG (impaired fasting glucose) 12/31/2017 Assessment & Plan (07/01/2024 12:18 PM LEAF TINNER): A1C ordered. Stable and will continue to monitor. Assessment & Plan (05/12/2022 1:59 PM CDT): Patient should reduce sugar and carbs, increase exercise, maintain proper body weight, and will check an A1c once or twice yearly. Assessment & Plan (11/07/2021 1:43 PM CDT): Patient should reduce sugar and carbs, increase exercise, maintain proper body weight, and will check an A1c once or twice yearly. Assessment & Plan (05/09/2021 11:37 AM CDT): Patient should reduce sugar and carbs, increase exercise, maintain proper body weight, and will check an A1c once or twice yearly. Assessment & Plan (10/27/2020 11:50 AM LEAF TINNER): Patient should reduce sugar and carbs, increase exercise, maintain proper body weight, and will check an A1c once or twice yearly. Assessment & Plan (04/01/2020 5:25 PM CDT): Patient should reduce sugar and carbs, increase exercise, maintain proper body weight, and will check an A1c once or twice yearly. Assessment & Plan (05/06/2019 1:48 PM CDT): Patient should reduce sugar and carbs, increase exercise, maintain proper body weight, and will check an A1c once or twice yearly. Assessment & Plan (10/31/2018 2:24 PM CDT): Check fasting blood sugar and A1c before next visit. Reduce carbohydrates and sugars. Assessment & Plan (04/30/2018 2:34 PM CDT): Patient should reduce sugar and carbs, increase exercise, maintain proper body weight, and will check an A1c once or twice yearly. Assessment & Plan (12/31/2017 12:06 PM CDT): Patient should reduce sugar and carbs, increase exercise, maintain proper body weight, and will check an A1c once or twice yearly. Mixed hyperlipidemia 12/31/2017 Assessment & Plan (07/01/2024 12:19 PM LEAF TINNER): Lipid panel stable and will continue to monitor. Continue on Rosuvastatin. Assessment & Plan (10/19/2023 3:21 PM LEAF TINNER): Chronic, stable Continue rosuvastatin 10 mg nightly Labs ordered; will make medication adjustments as needed Assessment & Plan (06/04/2023 11:04 AM CDT): Well controlled on current therapy and will check a lipid panel and LFTs in 12 months. Assessment & Plan (05/12/2022 1:59 PM CDT): Well controlled on current therapy and will check a lipid panel and LFTs in 6 months. Assessment & Plan (11/07/2021 1:43 PM CDT): Well controlled on current therapy and will check a lipid panel and LFTs in 6 months. Assessment & Plan (05/09/2021 11:37 AM CDT): Well controlled on current therapy and will check a lipid panel and LFTs in 6 months. Assessment & Plan (10/27/2020 11:50 AM LEAF TINNER): Well controlled on current therapy and will check a lipid panel and LFTs in 6 months. Assessment & Plan (04/01/2020 5:24 PM CDT): Well controlled on current therapy and will check a lipid panel and LFTs in 6 months. Assessment & Plan (05/06/2019 1:48 PM CDT): Well controlled on current therapy and will check a lipid panel and LFTs in 6 months. Assessment & Plan (10/31/2018 2:24 PM CDT): Well controlled on current therapy and will check a lipid panel and LFTs in 12 months. Assessment & Plan (04/30/2018 2:34 PM CDT): Well controlled on current therapy and will check a lipid panel and LFTs in 6 months. Call back if in fact he is not taking his Crestor. This certainly would be hard to explain considering his dramatic improvement of cholesterol levels. Assessment & Plan (12/31/2017 12:06 PM CDT): With increased risk of ASCVD, will try rosuvastatin 10 mg at bedtime and check lipids and LFTs before next visit. Risks of medications discussed will call back if any side effects develop. Insomnia 12/31/2017 Assessment & Plan (07/01/2024 12:20 PM LEAF TINNER): Chronic and well controlled. Will continue on Ambien. Assessment & Plan (10/19/2023 3:22 PM LEAF TINNER): Chronic, currently well controlled Continue Ambien 10 mg nightly Assessment & Plan (06/04/2023 11:03 AM CDT): Stable on Ambien Assessment & Plan (05/12/2022 1:59 PM CDT): Continue Ambien as needed Assessment & Plan (11/07/2021 1:44 PM CDT): He has had no issues on his Ambien and will continue for now. Consider decreasing dose in the future if develops side effects. Assessment & Plan (05/09/2021 11:37 AM CDT): Continue Ambien Assessment & Plan (12/31/2017 12:06 PM CDT): Continue Ambien CR. Has tolerated well for about a year without side effects Idiopathic peripheral neuropathy 12/31/2017 Overview (05/09/2021): Dr Tim at [facility]. Failed lyrica/gabapentin (ineffective), immunotherapy at [facility] ineffective. cymbalta/norco per neurology. Assessment & Plan (07/01/2024 12:18 PM LEAF TINNER): Chronic and worsening. Will continue on Hope PRN and referral placed to Neuro in [place]. Assessment & Plan (10/19/2023 3:23 PM LEAF TINNER): Chronic, generally controlled Continue Hope 5-325 mg as needed Assessment & Plan (06/04/2023 11:03 AM CDT): Follow-up with his neurologist as they direct Assessment & Plan (05/12/2022 1:59 PM CDT): Follow-up with his neurologist as they direct Assessment & Plan (05/09/2021 11:37 AM CDT): Follow-up with his neurologist as they direct. Assessment & Plan (01/10/2021 2:49 PM CDT): Continue his Cymbalta and Hope per his neurologist. He is instructed to complete his [employer] medical marijuana program application and drop off the physician portion for my completion. He is also aware that audible forms of be safer than inhalation of medical marijuana products. He is also aware of the mind-altering qualities of the product and to be careful with sedation and falls. Assessment & Plan (04/01/2020 5:25 PM CDT): Follow-up with his neurologist as they direct. Assessment & Plan (05/06/2019 1:48 PM CDT): Continue current medication regimen follow up with neurologist as they direct. Assessment & Plan (10/31/2018 2:25 PM CDT): Follow-up with his neurologist as they direct. Could try medical marijuana to see if he has any benefit. Assessment & Plan (04/30/2018 2:34 PM CDT): Follow-up with neurologist as they direct. Assessment & Plan (12/31/2017 12:07 PM CDT): Continue current medication regimen as directed by his neurologist. Low vitamin B12 level 12/31/2017 Assessment & Plan (10/19/2023 3:21 PM LEAF TINNER): Continue Vitamin B12 Labs ordered Assessment & Plan (06/04/2023 11:03 AM CDT): Restart B12 supplementation check level before next visit Assessment & Plan (05/12/2022 1:59 PM CDT): Continue B12 supplementation check level in 1 year Assessment & Plan (11/07/2021 1:44 PM CDT): Continue supplementation and check level before next visit. Assessment & Plan (05/09/2021 11:37 AM CDT): Restart B12 supplement check level before next visit. Assessment & Plan (04/01/2020 5:25 PM CDT): Continue supplementation check level in 1 year. Assessment & Plan (05/06/2019 1:48 PM CDT): Hold B12 and check level before next visit. Assessment & Plan (10/31/2018 2:26 PM CDT): Continue supplementation check level in 1 year. Assessment & Plan (04/30/2018 2:34 PM CDT): Continue supplementation check level before next visit. Assessment & Plan (12/31/2017 12:07 PM CDT): Continue oral supplementation check level before next visit. Keratosis, senilis 10/25/2015 Skin neoplasm 08/17/2014 Obstructive sleep apnea syndrome 12/25/2013 Assessment & Plan (07/01/2024 12:19 PM LEAF TINNER): Still not using CPAP. Assessment & Plan (10/19/2023 2:37 PM LEAF TINNER): Patient has not used his CPAP in 30 years Assessment & Plan (06/04/2023 11:04 AM CDT): Patient is compliant with the CPAP machine and gets symptomatic relief. Assessment & Plan (05/12/2022 1:58 PM CDT): Patient is compliant with the CPAP machine and gets symptomatic relief. Assessment & Plan (05/09/2021 11:36 AM CDT): Patient is compliant with the CPAP machine and gets symptomatic relief. Assessment & Plan (10/27/2020 11:50 AM LEAF TINNER): Patient is compliant with the CPAP machine and gets symptomatic relief. Assessment & Plan (05/06/2019 1:48 PM CDT): Patient is compliant with the CPAP machine and gets symptomatic relief. Assessment & Plan (10/31/2018 2:23 PM CDT): Patient is compliant with the CPAP machine and gets symptomatic relief. Assessment & Plan (04/30/2018 2:33 PM CDT): Patient is compliant with the CPAP machine and gets symptomatic relief. Assessment & Plan (12/31/2017 12:06 PM CDT): Patient is compliant with the CPAP machine and gets symptomatic relief. Infectious warts 03/11/2013 Inflamed seborrheic keratosis 08/03/2011 Psoriasis 03/13/2011 Assessment & Plan (07/01/2024 12:20 PM LEAF TINNER): Chronic and stable. 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 Warned water was then used to gently lavage his right external auditory canal. He had some cerumen removed but still had a large cerumen impaction afterwards and could not visualize the tympanic membrane. After several attempts we decided it best for ENT referral for further evaluation and treatment. Blood in stool 01/28/2019 10/19/2023 Assessment & Plan (01/28/2019 2:50 PM CDT): Several weeks ago noted BRBPR only with bm for 10 days. No anal pain and no palpable swelling. Bleeding ceased 2 weeks ago without recurrence. No other change in bowel habits. Reviewed findings on recent colonoscopy and discussed repeat but advised against unless BRBPR recurs, Return prn At low risk for fall 10/31/201805/12/ 022 Assessment & Plan (05/09/2021 11:38 AM CDT): Walk in well lit rooms without clutter on the floor and use handrails on all stair cases. Assessment & Plan (04/01/2020 5:26 PM CDT): Timed get up and go test normal. Assessment & Plan (10/31/2018 2:26 PM CDT): Timed get up and go test normal. 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 Adiposity 12/25/2013 12/31/2017 Overview (11/23/2016): Obesity Hypersomnia 12/25/2013 12/31/2017 Overview (11/23/2016): Hypersomnia Immunizations Immunization Administration Dates Next Due COVID-19 MRNA (MODERNA) .25 ML (25 MCG) VACCINE (6 MOS- 11 YRS) 05/28/2023 Influenza, Quad, Adjuvantate d, Intramuscular 07/20/2022 Influenza, Quadrivalent, Hig h Dose, Preservative Free, Intrr 05/28/2023 Influenza, Quadrivalent, Spl it, Intramuscular 07/07/2020 Influenza, Quadrivalent, Spl it, Preservative Free, Intramuscular 06/21/2016 Influenza, Split 06/03/2010 Influenza, Trivalent, High D ose, Split, Preservative Free, Intramuscular 07/12/2021,06/14/2016 Influenza, Trivalent, IM (MDV) 06/03/2014,2012,07/23/2012 Influenza, Unspecified 05/20/2024,2020(Deferred: Patient Refused),04/01/2020(Deferred: Patient Refused),05/28/2019,05/06/2019(Deferre d: Patient Refused),06/03/2018,07/04/2017 Pfizer SARS-CoV-2 Monovalent Vaccination (12+ Yrs) PURPLE 11/10/2020,10/20/2020 Pneumococcal Conjugate PCV 13 12/31/2017 Pneumococcal Polysaccharide PPV23 04/01/2020 Td, Unspecified 03/02/2017 ZOSTER LIVE 11/07/2012 ZOSTER Recombinant 04/26/2023 Social History Tobacco Use Types Packs/Day Years Used Date Smoking Tobacco: Former Cigarettes 2 42 1 953 - 1995 Smokeless Tobacco: Never Tobacco Cessation:Counseling Given: Not Answered Alcohol Use Standard Drinks/Week Comments Yes 0 (1 standard drink = 0.6 oz pur e alcohol) OASIS D0700: Social Isolation Answer Da te Recorded Frequency of experiencing loneliness or isolatio n Never 04/09/2024 OASIS A1250: Transportation Answer Date Recorded Lack of Transportation (Medical) No 04/09/2024 Lack of Transportation (Non-Medical) No 04/09/2024 Patient Unable or Declines to Respond No 04/09/2024 OASIS B1300: Health Literacy Answer Everardo e Recorded Frequency of needing help to read materials from doctor or pharmacy Sometimes 04/09/2024 [facility] Utilities Answer Date Recorded In the past 12 months has th e electric, gas, oil, or water company threatened to shut off services in your home? No 04/24/2024 AUDIT-C Answer Date Recorded Q1: How often do you have a drink containing alcohol? Never 10/31/2024 Q2: How many drinks containi ng alcohol do you have on a typical day when you are drinking? Patient does not drink Q3: How often do you have si x or more drinks on one occasion? Never 10/31/2024 Overall Financial Resource Strain (CARDIA) Answe r Date Recorded How hard is it for you to pa y for the very basics like food, housing, medical care, and heating? Not very hard 04/24/2024 PHQ-2 Answer Date Recorded PHQ-2 Total Score (If total score is 3 or more points, staff should administer the PHQ-9) 0 07/04/2024 Hunger Vital Sign Answer Date Recorded Within the past 12 months, y ou worried that your food would run out before you got the money to buy more. Never true 04/24/20 24 Within the past 12 months, t he food you bought just didn't last and you didn't have money to get more. Never true 04/24/2024 Housing Stability Vital Sign Answer Everardo e Recorded In the last 12 months, was t here a time when you were not able to pay the mortgage or rent on time? No 04/24/2024 In the past 12 months, how m any times have you moved where you were living? 0 04/24/2024 At any time in the past 12 m [facility], were you homeless or living in a snf (including now)? No 04/24/2024 Personal Safety Answer Date Recorded Have you ever been in or are you currently in a harmful physical or emotional relationship or is someone making you feel afraid or unsafe? Denies 03/18/2024 Sex and Gender Information Value Date Recorded Sex Assigned at Not on file Legal Sex Male 12:50 AM LEAF TINNER Gender Identity Not on file Sexual Orientation Not on file Last Filed Vital Signs Vital Sign Reading Time Taken Comments Blood Pressure 111/68 11/20/2024 11:24 AM CDT Pulse 69 11/20/2024 11:24 AM CDT Temperature 36.4 C (97.6 F) 07/04/2024 2:56 PM LEAF TINNER Respiratory Rate 18 10/31/2024 2:05 PM CDT Oxygen Saturation 97% 08/18/2024 7:52 AM LEAF TINNER Inhaled Oxygen Concentration - - Weight 78 kg (172 lb) 11/20/2024 11:24 AM CDT Height 162.6 cm (5' 4 ) 11/20/2024 11:24 AM CDT Body Mass Index 29.52 11/20/2024 11:24 AM CDT Plan of Treatment Not on file Medical Devices Implanted Type Area Career [employer] Guidance Counselor Device Identifier Shelf Expiration Date Model / Serial / Lot [employer] Attune 5mm Posterior Stabilize Fix Bearing Knee 6 Insert Tibial [id number] - [id number] Implanted:Qty: 1 on 03/18/2024 by Rupesh Lemus MD at [facility] Left: Knee [employer] [id number] 06/19/2028 [id number] / / [id number] [employer] Attune Fb Tib Base Sz 7 Por [id number] - [id number] Implanted:Qty: 1 on 03/18/2024 by Rupesh Lemus MD at [facility] Left: Knee [employer] [id number] 03/19/2032 [id number] / / [id number] [employer] Component Femoral Knee Porous Posterior Stabilized Left Attune Size 6 [employer] [id number] - [id number] Implanted:Qty: 1 on 03/18/2024 by Rupesh Lemus MD at [facility] Left: Knee [employer] [id number] 12/17/2032 [id number] / / [id number] Procedures Procedure Name Priority Date/Time Associated Diagnosis Comments US VEIN DUPLEX LOWER EXTREMITY LEFT LIMITED Schedule Routine, Read Routine (OP Routine) 12/17/2024 10:24 AM CDT Swelling of lower leg Status post total left knee replacement XR KNEE LEFT 3 VIEWS Schedule Routine, Read Routine (OP Routine) 10/31/2024 1:58 PM CDT Aftercare following left knee joint replacement surgery PSA SCREEN Routine 06/26/2024 10:13 AM LEAF TINNER Screening PSA (prostate specific antigen) COLONOSCOPY IMAGES 07/20/2016 from Last 3 Months or Most Recently Relevant to Health Maintenance Results * US VEIN DUPLEX LOWER EXTREMITY LEFT LIMITED, UNILATERAL (12/17/2024 10:24 AM CDT) Anatomical Region Laterality Modality Vascular Left Ultrasound 12/17/2024 11:2 8 AM CDT Narrative 12/17/2024 11:29 AM CDT EXAM DESCRIPTION: US VEIN DUPLEX LOWER EXTREMITY LEFT LIMITED, UNILATERAL REASON FOR STUDY: Lower leg swelling status post left knee replacement. TECHNIQUE: Duplex scan using the B-mode, spectral Doppler, and color-flow Doppler of the deep venous system of the left lower extremity was performed. Images stored on PACS. COMPARISON: None. FINDINGS: The common femoral, common femoral-saphenous vein confluence, visualized profunda femoral, superficial femoral, and popliteal veins are readily compressible with no intraluminal thrombus on benoit scale images. There is normal color and spectral Doppler signal, including augmentation. Greater saphenous vein appears patent. Visualized calf veins are patent, although the peroneal veins are not well visualized. THIS IS AN ELECTRONICALLY VERIFIED FINAL REPORT 12/17/2024 11:29 AM - Electronically signed by Kelby Go M.D. CH: MIGDALIA Report ID: [id number] Reading Location: [id number] Procedure Note Kelby Go Jr., MD - 12/17/2024 EXAM DESCRIPTION: US VEIN DUPLEX LOWER EXTREMITY LEFT LIMITED,UNILATERAL REASON FOR STUDY: Lower leg swelling status post left knee replacement. TECHNIQUE: Duplex scan using the B-mode, spectral Doppler, and color-flow Doppler of the deep venous system of the left lower extremity wasperformed. Images stored on PACS. COMPARISON: None. FINDINGS: The common femoral, common femoral-saphenous vein confluence, visualized profunda femoral, superficial femoral, and popliteal veins are readily compressible with no intraluminal thrombus on benoit scale images. There is normal color and spectral Doppler signal, including augmentation. Greater saphenous vein appears patent. Visualized calf veins are patent, althoughthe peroneal veins are not well visualized. THIS IS AN ELECTRONICALLY VERIFIED FINAL REPORT 12/17/2024 11:29 AM - Electronically signed by Kelby Go M.D. CH: MIGDALIA Report ID: [id number] Reading Location: [place] [address] Valeria DAVE IMG US PROCEDURES Fin al Result * XR Knee Left 3 Views (10/31/2024 1:58 PM CDT) Anatomical Region Laterality Modality Lower Extremities, Knee Left Digital Radiography Narrative 10/31/2024 2:11 PM CDT X-ray of the left knee viewed and interpreted. There is no evidence of fracture, subluxation, or bony abnormality. Knee arthroplasty in good position with no interval change. Mahogany Pavon NP IMG XR PROCEDURES Final Result * PSA screen (06/26/2024 10:13 AM LEAF TINNER) PSA 2.23 < OR = 4.00 ng/mL [facility] Comment: The total PSA value from this assay system is standardized against the WHO standard. The test result will be approximately 20% lower when compared to the equimolar-standardized total PSA (Kylee Heath). Comparison of serial PSA results should be interpreted with this fact in mind. This test was performed using the Siemens chemiluminescent method. Values obtained from different assay methods cannot be used interchangeably. PSA levels, regardless of value, shoul
--- OUTSIDE RECORDS SUMMARY | 2025-01-05 11:02 | XMS_ITS | Encounter Summary ---
Author Organization [facility] Healthcare Address [address] [place] [address] Care Team Providers Care Brick Mason Name Role Phone Fabienne Wilkinson NP Primary Care Provider [phone] Rupesh Lemus MD Unavailable [phone] Encounter Details Date Type Department Care Team (Late st Contact Info) Description 12/18/2024 Results Follow-Up [facility] Medical Group Orthopedics and Sports Medicine [address] [facility] [address] [place] [address] Valeria Albarran PA [address] [facility] [address] [place] [address] US VEIN DUPLEX LOWER EXTREMITY LEFT LIMITED, UNILATERAL Social History Tobacco Use Types Packs/Day Years Used Date Smoking Tobacco: Former Cigarettes 2 42 1 953 - 1995 Smokeless Tobacco: Never Alcohol Use Standard Drinks/Week Comments Yes 0 [...] materials from doctor or pharmacy Sometimes 04/09/2024 [facility] Utilities Answer Date Recorded In the past 12 months has e electric, gas, oil, or water company [...] any time in the [facility] were you homeless or living in a senior care (including now)? No 04/24/2024 Personal Safety Answer Date Recorded Have you ever been in or are you currently in a harmful physical or emotional relationship or is someone making you feel afraid or unsafe? 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 documented in this encounter Plan of Treatment Not on file documented as of this encounter Visit Diagnoses Not on filedocumented in this encounter Care Teams Brick Mason Relationship Specialty Start Date End Date Fabienne Wilkinson NP PCP - General Family Medicine 10/19/23 Rupesh Lemus MD [address] [facility] [address] [address] [address] Surgeon Orthopedic Surgery 03/19/24 documented as of this encounter
--- OUTSIDE RECORDS SUMMARY | 2025-01-05 11:02 | XMS_ITS | Encounter Summary ---
Author Organization [facility] Healthcare Address [address] [place] [address] Care Team Providers Care Fur Matcher Name Role Phone Fabienne Wilkinson NP Primary Care Provider [phone] Rupesh Lemus MD Unavailable [phone] Reason for Visit * Reason Onset Date Comments Medication Request 05/13/2024 Encounter Details Date Type Department Care Team ([facility] Contact Info) Description 05/13/2024 Telephone Family Physicians [facility] [address] [place] [address] Fabienne Wilkinson NP [address] [place] [address] Medication Request Social History Tobacco Use Types Packs/Day Years Used Date Smoking Tobacco: Former Cigarettes 2 42 1 953 - 1994 Smokeless Tobacco: Never Alcohol Use Standard Drinks/Week [...] materials from doctor or pharmacy Sometimes 04/09/2024 [facility] Utilities Answer Date Recorded In the past 12 months has e electric, gas, oil, or water company threatened to shut off services in your home? No 04/24/2024 AUDIT-C Answer Date Recorded Q1: How often do you have a drink containing alc ohol? 2-4 times a month 03/18/2024 Q2: How many drinks containi ng alcohol do you have on a typical day when you are drinking? 1 or 2 03/18/2024 Q3: How often do you have si x or more drinks on one occasion? Never 03/18/2024 Overall Financial Resource Strain (CARDIA) Answe r Date Recorded How hard is it for you to pa y for the very basics like food, housing, medical care, and heating? Not very hard 04/24/2024 PHQ-2 Answer Date Recorded PHQ-2 Total Score (If total score is 3 or more points, staff should administer the PHQ-9) 1 04/04/2024 Hunger Vital Sign Answer Date Recorded Within [...] any time in the past 12 m [facility], were you homeless or living in a long-term (including now)? No 04/24/2024 Personal Safety Answer Date Recorded Have you ever been in or are you currently in a harmful physical or emotional relationship or is someone making you feel afraid or unsafe? 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 Malik urology called to assist with this request for the patient and given previous message. Does message need to be routed? No * Telephone Encounter - Marisa Mak MA - 05/13/2024 4:41 PM CDT Spoke with patient and let him know he will have to reach out to ortho for refills. * Telephone Encounter - Marisa Mak MA - 05/13/2024 3:18 PM CDT Last refill 03/19 MELANIA 04/04JUN 29 Send to pharmacy if approved. Last filled by Dr Lemus * Telephone Encounter - Adeline Ronquillo - 05/13/2024 3:10 PM CDT Medication Question/Clarification Medication Name(s): HYDROcodone-acetaminophen (NORCO) 5-325 mg per tablet What is the question or clarification needed? Patient called requesting a refill on this medication. It no longer appears on his active medication list but patient would like more and states that hisPCP refilled his last script. If needed, Pharmacy(s) medication(s) should be sent to: [facility] [place] Additional Comments: Please follow up with patient. Does message need to be routed? Yes-Action Needed documented in this encounter Plan of Treatment Not on file documented as of this encounter Visit Diagnoses Not on filedocumented in this encounter Care Teams Fur Matcher Relationship Specialty Start Date End Date Fabienne Wilkinson NP PCP - General Family Medicine 10/19/23 Rupesh Lemus MD [address] [place] [address] [place] [address] Surgeon Orthopedic Surgery 03/19/24 documented as of this encounter
--- OUTSIDE RECORDS SUMMARY | 2025-01-05 11:07 | XMS_ITS | Continuity of Care Document ---
Author [place] [facility] [place] [address] [facility] [place] [address] [place] [phone] Phone Care Team Providers Care Firer Kiln Name Role Phone Matthew Evans OD Unavailable Unavailable Allergies, Adverse Reactions, Alerts Substance Reaction Status Criticality No Known Allergies Active No Inform ation Medications Medication Instructions Dosage Effective Dates (start - stop) Status Comments alfuzosin ER 10 mg tablet,extended release 24 hr take 1 tablet by oral route every day 10 MG - Active zolpidem 10 mg tablet take 1 tablet by oral route every day at bedtime 10 MG - Active venlafaxine 75 mg tablet take 1 tablet b y oral route 2 times every day with food 75 MG - Active sertraline 50 mg tablet take 1 tablet by oral route every day 50 MG - Active hydrocodone 5 mg-acetaminophen 325 mg tablet take 1 tablet by oral route every 6 hours as needed for pain 1.00 tablet - Active rosuvastatin 10 mg tablet take 1 tablet by oral route every day 10 MG - Active HYDROCHLOROTHIAZIDE (unknown strength) take 1 tablet by oral route every day Not Available - Active verapamil ER (SR) 240 mg tablet,extended release take 1 tablet by oral route every day with food 240 MG - Active Aspirin Low Dose 81 mg tablet,delayed release take 1 tablet by oral route every day 81 MG - Active Procedures Procedure Date No Charge Refraction Post-op Follow-up Visit No Charge Refraction After Cataract Laser Surgery Post-op Follow-up Visit No Charge Refraction After Cataract Laser Surgery Eye Exam & Treatment No Charge Refraction Post-op Follow-up Visit Post-op Follow-up Visit Remove Cataract, Post Op Care 6 Remove Cataract, Insert Lens,Comanaged D [facility]Professional Refraction [facility]Techn[facility] Office/outpatient Visit, Est No Charge Refraction Eye Exam & Treatment Remove Cataract, Insert Lens [facility]Professional Eye Exam, New Patient [facility]Technical No Charge Refraction Advance Directives Directive Yes / No Effective Date File Name No Information Encounters Encounter Description Practice Location Reason(s) For Visit Diagnoses Date Provider Providers Copied on Encounter Formerly [facility], [address] [place] [address] [address], [place], [place], [address], [place] tel:[phone] [place] YAG PC PO (chief complaint) Encounter for examination following surgery 9 Nathan MICHAEL Macdonaldic. [address], [address], [place], [address], [place]. tel:[phone] [facility]ly [facility], [address] [place] [address] [address], [place], [place], [id number], [place] tel:[phone] [place] 3 week s/p YAG PC (chief complaint) Surgery follow-up examinationOt her secondary cataract, left eye 9 Baltazar Teague. [address] [facility], [address], [place], [place], [address], [place]. tel:[phone] [facility] [employer], [address] [place] [address] [address], [place], [place], [address], [place] tel:[phone] [place] YAG evaluation (chief complaint) No Information 9 Baltazar Teague. [address], [address], [place], [place], [address], [place]. tel:[phone] [facility], [address], [place], [place], [address], [place] tel:[phone] [place] No Information 2- 9 Baltazar Teague. [address], [place], [place], [address], [place]. tel:[phone] [facility], [address], [place], [place], [address], [place] tel:[phone] [place] Post-Op (chief complaint) No Information 0- 7 Baltazar Teague. [address], [place], [place], [address], [place]. tel:[phone] [facility], [address] [place] [address] [address], [place], [place], [address], [place] tel:[phone] [place] Post-Op (chief complaint) No Information Jul- 3- 6 Baltazar Teague. [address], [place], [address], [place]. tel:[phone] [facility], [address], [place], [place], [address], [place] tel:[phone] [place] Post-Op (chief complaint) No Information Jul- 4- 6 Baltazar Teague. [address], [place], [place], [address], [place]. tel:[phone] [facility], [address], [place], [place], [address], [place] tel:[phone] [facility] No Information Jul- 3-201 6 Baltazar Teague. [address], [place], [address], [place]. tel:[phone] [facility], [address], [place], [place], [address], [place] tel:[phone] SEC Matthew N [place] No Information Dec-1 2-201 6 Baltazar Teague. [address] [facility], [address], [place], [place], [address], [place]. tel:[phone] Office/outpa tient Visit, [facility], [address], [place], [place], [address], [place] tel:[phone] [place] [facility] Professional Cataract evaluation (chief complaint) No Information Nov-0 - 6 Baltazar Teague. [address] [facility], [address], [place], [place], [address], [place]. tel:[phone] [facility], [address] [place] [address] [address], [place], [place], [address], [place] tel:[phone] [place] No Information Oct-0 4-201 6 Baltazar Teague. [address] [facility], [address], [place], [place], [address], [place]. tel:[phone] [facility], [address] [place] [address] [address], [place], [place], [address], [place] tel:[phone] [place] blurry vision (chief complaint) No Information Oct-0 9-201 5 Baltazar Teague. [address] [facility], [address], [place], [place], [address], [place]. tel:[phone] [facility], [address] [place] [address] [address], [place], [place], [address], [place] tel:[phone] [facility] [place] No Information Mar-2 3-201 5 Casey Salguero. [address], [address], [place], [address], [place]. tel:[phone] [facility], [address], [place], [place], [address], [phone] SEC Matthew Álvarez No Information 5 Casey Salguero. [address], [address], [place], [address], . tel:[phone] [facility], [address], [place], [place], [address], [phone] SEC [place] CRIST[place] Professional Blurry vision (chief complaint) No Information 5 Casey Salguero. [address], [address], [place], [address], [place]. tel:[phone] Family History Family Member Type Diagnosis Age At Onset No Information Payers Payer name Insurance type Covered constitution party ID Authoriza tion(s) No Information Social History Type Description Quantity Date Captured Comments Alcohol Use Details 2 beers weekly Caffeine Use Details 2 cups per day Tobacco Use Status Ex-cigarette smoker 019 Smoking Status Former smoker Smoking Tobacco Use Details Cigarette: Age Stopped: 63 Cigarette: No Details Available Sex Male Chief Complaint And Reason For Visit From encounter dated '10/15/2018 14:00'. YAG PC PO (chief complaint). Description: The 78 year old male presents for evaluation of YAG PC POin the left eye. Pt reports he can see better since YAG PC OS. Pt reports he has some floaters, butno worse than before. Pt denies any flashes of light, OU. Pt reports he wears OTC readers for NV and doesn't wear gls for DV. Reason For Referral Reason For Referral No Information Plan Of Treatment Date Type Action Status Patient Education Learning About YAG Lase r Capsulotomy completed Patient Education Learning About YAG Lase r Capsulotomy completed History Of Present Illness Encounter Date Complaint History Of Prese nt Illness YAG PC PO The 78 year old male presents for evaluation of YAG PC PO in the left eye. Pt reports he can see better since YAG PC OS. Pt reports he has some floaters, but no worse than before. Pt denies any flashes of light, OU. Pt reports he wears OTC readers for NV and doesn't wear gls for DV. 3 week s/p YAG PC The 78 year ol d male presents for evaluation of 3 week s/p YAG PC in the right eye and possible YAG in the left eye. Patient states VA is good with the right eye. c/o with the left eye is difficulty seeing in bright light and playing cards. YAG evaluation The 78 year old male presents for evaluation of YAG evaluation in the right eye and left eye. Hx of PCIOL OU, PCO OU, Ptosis OU, and Pinguecula OD. Pt reports he has trouble reading small print up close, OU, x 2 mos ago. Pt reports he doesn't use any gtts and no pain, irritation or discomfort today, OU. Post-Op The 76 year old male presents for a 1 month post op CE OS. Patient is finished with drops. Patient c/o OS feels irritated. Patient states has had a runny nose also. Post-Op The 76 year old male presents for a 1 week post op CE OS. Patient is using Pred, Poly and Diclofenac as directed OS. Patient states OS is doing good. Post-Op The 76 year old male presents for a 1 day post op CE OS. Patient is using Pred, Poly and Diclofenac as directed. Patient denies any pain or discomfort. Cataract evaluation The 76 year old male presents for Cataract evaluation OS. Patient is pseudo OD (Dr. Cardona) Patient c/o he notices a difference between eyes that colors are not the same, things look yellow with OS. Patient c/o hard to see street signs. blurry vision The 75 year old male presents for a cataract evaluation OS. Patient is pseudo OD. Patient states notices a difference between eyes and colors are more yellow with OS. Blurry vision The 74 year old male presents for Cataract Eval from Dr. Garsia. Pt has problems with night driving and reading. Pt does not feel his peripheral vision is as good for driving. Pt does not use any eye drops. Functional Status Date Functional Assessmen t No Information Instructions Date Instruction Additional Infor chidi RTC PRN Related to Encou nter for examination following surgery Impression/Plan Related to Encou nter for examination following surgery Impression/Plan Impression/Plan Follow up - Return t o Samuel Garsia OD in 2 months and for regularly scheduled visits Impression/Plan - 1 month s/p Phaco IOL OS. Patient has healed well. All post operative medications are finished. Vision is good and IOP is stable. Recommend patient use AFT as needed for dryness and irritation OU. Advised patient to follow up with Dr. Garsia for any glasses needs and continued regular exams. Patient wishes to use OTC readers only at this time. Patient will return to Samuel Garsia OD in 2 months and for regularly scheduled visits. Follow up - as scheduled Impression/Plan - Go od post op results after CE OS. Continue post op drops as instructed. Return to clinic as scheduled or sooner with any problems. Follow up - Return to clinic as scheduled Impression/Plan - On e Day PO s/p Phaco with IOL OS in good position. Patient healing well. Medication instillation, shield use and restrictions reviewed with patient. Return to clinic as scheduled or sooner with problems. Follow up - Schedule CE OS with the standard IOL set for distance Impression/Plan - Ea rly PCO OD discussed with patient. The PCO is not visually significant at this time. Advised patient if he notices the vision in the right eye beginning to slowly decline to call the office. Explained there is an in office laser procedure that can clear the vision.Cataract OS accounts for patient's visual complaints. Discussed all risks, benefits and alternatives pertaining to cataract surgery. The procedure and recovery from cataract extraction were discussed. Recommend phacoemulsification with intraocular lens implant. Lifestyle lens options discussed. The possibility that patient may still need to wear glasses to correct astigmatism and/or for reading vision following surgery reviewed and understood by patient. 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 Related to Combined forms of age-related cataract of left eye Follow up - RTC in 1 year for a complete exam. Impression/Plan - IO L OD stable. Discussed PCF (trace) OD and possible YAG PC for future treatment. Cataract in the left eye discussed in detail with pt. The patient understands that he does not qualify for cataracts surgery at this time. The patient will monitor vision changes and contact us with any decrease in vision. RTC in 1 year for a complete exam. - schedule cat sx OD Related to See list of assessments above - Cataracts account for the patient's complaints. Discussed all risks, benefits, procedures and recovery. Patient understands changing glasses will not improve vision. Patient desires to have surgery, recommend phacoemulsification with intraocular lens OD. Related to See list of assessments above Senile nuclear scler osis - Educational material given Related to Senile nuclear sclerosis Assessments Type Assessment Date assessment Encounter for examination follow ing surgery impression Encounter for examination follow ing surgery: Z09 Patient Care Teams Name Effective Dates (start - stop) Status Members No Information
== END 2025-01-05 11:33 | disposition home or self-care (01) ==
PROVIDERS: Emergency Provider Nurse Practitioner; PCP Nurse Practitioner
DX: S90.412A Abrasion, left great toe, initial encounter (principal); W22.8XXA Striking against or struck by other objects, initial encounter; I10 Essential (primary) hypertension; E78.00 Pure hypercholesterolemia, unspecified
CPT/HCPCS: 99202; G0463